=== PATIENT | male | born 1955 | race Caucasian/White ===

== ENCOUNTER 2020-02-20 13:30 | Emergency (ER) | payer OTHER ==
[~2020-02-20] VITALS: Ht 170.2 cm; Wt 93.9 kg
[~2020-02-20 13:30] MED LIST: HYZAAR 50/12.51 TAB; NORVASC2.5 MG; POTASSIUM99 MG
[2020-02-20] MEDS ORDERED: CHILDREN'S ASPI81 MG PO (13:48)
[2020-02-20] MEDS ORDERED: BRILINTA60 MG PO (13:48)
[2020-02-20] MEDS ORDERED: AMLODIPINE BESYL5 MG PO (13:48)
[2020-02-20] MEDS ORDERED: DIOVAN320 MG PO (13:49)
[2020-02-20] MEDS ORDERED: CRESTOR20 MG PO (13:49)
[2020-02-20] MEDS ORDERED: CARVEDILOL ER40 MG (13:49)
[2020-02-20] MEDS ORDERED: ACID CONTROLLER20 MG PO (13:50)
== END 2020-02-20 18:03 | disposition home or self-care (01) ==
LOC: ER 13:30
DX: N20.2 Calculus of kidney with calculus of ureter (principal); Z03.818 Encounter for observation for suspected exposure to other biological agents ruled out; R10.31 Right lower quadrant pain

== ENCOUNTER 2020-03-06 13:55 | Outpatient (CLI) | payer OTHER ==
[~2020-03-06 13:55] MED LIST changes: +ACID CONTROLLER20 MG PO; +AMLODIPINE BESYL5 MG PO; +BRILINTA60 MG PO; +CARVEDILOL ER40 MG; +CHILDREN'S ASPI81 MG PO; +CRESTOR20 MG PO; +DIOVAN320 MG PO
== END 2020-03-06 14:06 | disposition home or self-care (01) ==
LOC: TOM 13:55
PROVIDERS: ATTEND Urology
DX: N21.0 Calculus in bladder (principal); N20.0 Calculus of kidney; N40.0 Benign prostatic hyperplasia without lower urinary tract symptoms; N20.1 Calculus of ureter